=== PATIENT | female | born 1955 | race Caucasian/White ===

== ENCOUNTER → 2016-12-23 | Outpatient (CLI) | payer OTHER ==
--- NOTE | 2016-12-23 11:54 | REPMRS ---
Patient History The patient states she had a clinical breast exam in 11/2016. Patient is postmenopausal and had first child at age 32. Family history of breast cancer in mother at age 50 or over and prostate cancer in brother at age 50 or over. Digital Woman Screen Mammo: December 23, 2016 - Exam #: [id number] Bilateral CC and MLO view(s) were taken. Technologist: Chasidy Sprague, Technologist Prior study comparison: November 12, 2015, digital woman screen mammo performed at [facility] to [facility]. October 22, 2014, digital woman screen mammo performed at [facility] to [facility]. FINDINGS: There are scattered fibroglandular densities. There has been no change in the appearance of the mammogram from the prior studies. There is a mild amount of residual fibroglandular tissue which is fairly symmetric. There is no interval development of dominant mass, architectural distortion, or clustered microcalcification suggestive of malignancy. ASSESSMENT: BI-RADS/ACR category 1 mammogram. Negative. Recommendation Routine screening mammogram in 1 year (for women over age 40). This mammogram was interpreted with the aid of an FDA-approved computer-aided dectection system. Electronically Signed By: Ismael Timmons MD 12/23/16 0583
== END ==
LOC: M WHC 10:07
PROVIDERS: ATTEND Nurse Practitioner Family
DX: Z12.31 Encounter for screening mammogram for malignant neoplasm of breast (principal)

== ENCOUNTER → 2018-02-06 | Day surgery (SDC) | payer OTHER ==
[~2018-02-06] MED LIST: LIDOCAINE 2% INJ 100 MG/5 ML SDV (FOR ANES.) As Ordered; PROPOFOL 200 MG/20 ML VIAL As Ordered
[2018-02-06] MEDS: NS 1,000 ML IV (08:20)
== END | disposition home or self-care (01) ==
LOC: M OPP 08:01
DX: Z12.11 Encounter for screening for malignant neoplasm of colon (principal); K64.0 First degree hemorrhoids; D12.2 Benign neoplasm of ascending colon; K21.9 Gastro-esophageal reflux disease without esophagitis; R06.83 Snoring; Z79.899 Other long term (current) drug therapy; Z88.0 Allergy status to penicillin; Z78.0 Asymptomatic menopausal state; Z98.51 Tubal ligation status; Z80.3 Family history of malignant neoplasm of breast; Z80.1 Family history of malignant neoplasm of trachea, bronchus and lung; Z80.42 Family history of malignant neoplasm of prostate; Z83.3 Family history of diabetes mellitus
CPT/HCPCS: 45385

== ENCOUNTER → 2019-04-23 | Outpatient (REF) | payer OTHER ==
[~2019-04-23] MED LIST changes: +ALEV220T26 PO; -LIDOCAINE 2% INJ 100 MG/5 ML SDV (FOR ANES.) As Ordered; -PROPOFOL 200 MG/20 ML VIAL As Ordered; +RANI75TA15 PO
== END ==
LOC: M LAB LCGH 12:06
PROVIDERS: ATTEND Nurse Practitioner Adult Health
DX: R93.89 Abnormal findings on diagnostic imaging of other specified body structures (principal)

== ENCOUNTER → 2019-06-13 | Outpatient (REF) | LOC: M LAB LCGH 17:23 | PROVIDERS: ATTEND Obstetrics & Gynecology | DX: N85.01 Benign endometrial hyperplasia (principal) ==

== ENCOUNTER → 2020-05-12 | Outpatient (CLI) | payer OTHER ==
--- NOTE | 2020-05-27 09:58 | REP ---
BILATERAL LOWER EXTREMITY ARTERIAL DOPPLER ULTRASOUND HISTORY: Atherosclerosis in the [place] arteries. Pain in the legs. FINDINGS: Ankle brachial indices are normal measured at 1.5 on the right and 1.3 on the left. Normal triphasic arterial Doppler waveforms are noted throughout the lower extremity arteries bilaterally. No stenosis or occlusion seen. Minima plaquing seen. VELOCITY CHART BILATERAL LOWER EXTREMITIES RIGHT (cm/s) LEFT (cm/s) CERAMIC CHEMIST 126 118 Profunda 87 86 Proximal SFA 100 97 Mid SFA 95 73 Distal SFA 55 61 Popliteal 37 41 Proximal MATTEO 36 35 Tibioperoneal trunk 37 50 Proximal BENCH HAND 55 57 Distal BENCH HAND 76 58 Distal MATTEO 61 46 MTDD
== END ==
LOC: M RAD 11:47
PROVIDERS: ATTEND Physician Assistant
DX: I70.213 Atherosclerosis of native arteries of extremities with intermittent claudication, bilateral legs (principal); I87.2 Venous insufficiency (chronic) (peripheral)

== ENCOUNTER → 2020-09-07 | Outpatient (CLI) | payer OTHER ==
--- NOTE | 2020-09-07 12:26 | REP ---
INDICATION: VENOUS INSUFFICIENCY LELE COMPARISON: None. TECHNIQUE: Timmons scale and color Doppler evaluation of the bilateral lower extremities using linear high frequency transducer including reflux evaluation. FINDINGS: Ultrasound examination of the right and left lower extremity deep venous structures from the common femoral vein to the popliteal vein demonstrates normal compressibility flow and wave patterns in response to respiration and augmentation. There is no evidence for deep venous thrombosis. Right lower extremity demonstrates only very minimal reflux in the proximal greater saphenous vein which measures 6.6 mm diameter with reflux duration of 0.53 seconds. Left lower extremity demonstrates reflux in the proximal greater saphenous vein measuring 5.7 mm diameter with reflux duration 2nd and in the mid greater saphenous vein measuring 3.3 mm diameter with reflux duration 3.9 seconds. Reflux is noted towards a distal collateral vessel. IMPRESSION: No evidence for deep venous thrombosis. Minimal reflux noted. <Electronically signed by Erick Zamudio > 09/07/20 0096
== END ==
LOC: M RAD 09:45
PROVIDERS: ATTEND Surgery Vascular Surgery
DX: I87.2 Venous insufficiency (chronic) (peripheral) (principal)

== ENCOUNTER → 2022-11-29 | Outpatient (REF) | payer MEDICARE, OTHER | LOC: M LAB REF 16:40 | PROVIDERS: ATTEND Ophthalmology | DX: H10.33 Unspecified acute conjunctivitis, bilateral (principal) ==